=== PATIENT | female | born 1940 | race Caucasian/White ===

== ENCOUNTER 2021-06-18 23:18 | Inpatient (IN) | payer MEDICARE, OTHER ==
[~2021-06-18] VITALS: Ht 162.6 cm; Wt 62.1 kg
[2021-06-19 04:31] LABS: HEMOGLOBIN 11.8 gm/dl (12.3-15.3); RED BLOOD COUNT 3.86 M/UL (4.00-5.10); WHITE BLOOD COUNT 27.2 K/UL (4.5-11.0)
[2021-06-19] MEDS ORDERED: DOXYCYCLINE MO100 MG PO (10:30)
[2021-06-19] MEDS ORDERED: PREDNISONE10 M1 PO (10:30)
[2021-06-19] MEDS ORDERED: CARVEDILOL12.5 MG PO (10:31)
[2021-06-19] MEDS ORDERED: ELIQUIS5 MG PO (10:31)
[2021-06-19] MEDS ORDERED: HYDROCODON-ACE1 EAC4 PO (10:31)
[2021-06-19] MEDS ORDERED: CARDIZEM30 MG PO (10:32)
[2021-06-19] MEDS ORDERED: ADVAIR 250-501 EACH INH (10:32)
[2021-06-19] MEDS ORDERED: LOSARTAN POTAS100 MG PO (10:33)
[2021-06-19] MEDS ORDERED: PROAIR HFA8.5 GM INH (10:33)
[2021-06-19] MEDS ORDERED: CRESTOR20 MG PO (10:33)
[2021-06-19] MEDS ORDERED: SOTALOL120 MG PO (10:34)
[2021-06-19] MEDS ORDERED: ASPIRIN81 MG PO (10:34)
[2021-06-19] MEDS ORDERED: ONDANSETRON HCL4 MG PO (10:35)
[2021-06-19] MEDS ORDERED: VITAMIN D3-CAL1 EACH PO (10:36)
[2021-06-20 03:59] LABS: HEMOGLOBIN 10.4 gm/dl (12.3-15.3)
[2021-06-20 04:02] LABS: RED BLOOD COUNT 3.43 M/UL (4.00-5.10); WHITE BLOOD COUNT 14.8 K/UL (4.5-11.0)
[2021-06-20 04:15] LABS: BUN/CREATININE RATIO 34 (0-10)
--- NOTE | 2021-06-20 04:23 | NUR ---
PTS PTT RESULT OF GREATER THAN [address] RUEDA. ORDERS TO CONTINUE TO FOLLOW HEPARIN PROTOCOL.
--- NOTE | 2021-06-21 05:09 | NUR ---
WOUND CARE PERFORMED ON RIGHT HIP. PT NOTED TO HAVE NUMEROUS SKIN TEARS FROM THE DRESSINGS. CLEANSED WOUND WITH BETADINE AND APPLIED STERI STRIPS AND COVERED WITH ABD PAD AND PAPER TAPE. PT TOLERATED VERY WELL. ATTEMPTED TO SECURE DRESSING TO AREAS WHERE SHE WOULD NOT SUSTAIN MORE SKIN TEARS.
[2021-06-21 05:21] LABS: WHITE BLOOD COUNT 18.4 K/UL (4.5-11.0)
[2021-06-21 05:32] LABS: RED BLOOD COUNT 3.05 M/UL (4.00-5.10)
[2021-06-21 06:53] LABS: BUN/CREATININE RATIO 41 (0-10)
[2021-06-22 05:03] LABS: HEMOGLOBIN 9.2 gm/dl (12.3-15.3); RED BLOOD COUNT 3.13 M/UL (4.00-5.10); WHITE BLOOD COUNT 18.3 K/UL (4.5-11.0)
[2021-06-22 05:13] LABS: BUN/CREATININE RATIO 36 (0-10)
[2021-06-23 05:13] LABS: RED BLOOD COUNT 3.31 M/UL (4.00-5.10); WHITE BLOOD COUNT 19.2 K/UL (4.5-11.0)
[2021-06-23 06:40] LABS: BUN/CREATININE RATIO 24 (0-10)
--- NOTE | 2021-06-23 12:26 | NUR ---
PATIENT O2 SAT 87% ON ROOM AIR AT REST.
--- NOTE | 2021-06-24 02:52 | NUR ---
DRESSING CHANGED TO RIGHT OUTER HIP SURGICAL SITE. STERI STRIPS STILL IN PLACE, CHLORAHEXADINE SOAP USED TO CLEAN SITE, RINSED AND ISLAND DRESSING APPLIED. PATIENT TOLERATED PROCEDURE WELL.
[2021-06-24 16:36] LABS: HEMOGLOBIN 10.3 gm/dl (12.3-15.3); RED BLOOD COUNT 3.37 M/UL (4.00-5.10); WHITE BLOOD COUNT 15.7 K/UL (4.5-11.0)
[2021-06-24 16:55] LABS: BUN/CREATININE RATIO 20 (0-10)
[2021-06-25 08:34] LABS: HEMOGLOBIN 9.4 gm/dl (12.3-15.3); RED BLOOD COUNT 3.09 M/UL (4.00-5.10); WHITE BLOOD COUNT 14.2 K/UL (4.5-11.0)
[2021-06-25 09:02] LABS: BUN/CREATININE RATIO 23 (0-10)
--- NOTE | 2021-06-25 10:35 | NUR ---
DR MORENO HERE TO DO CARDIOVERSION, TIME OUT PERFORMED AT 10:36, VS STABLE AT THIS TIME. VERSED 2MG IV GIVEN AT 10:37, 10:39 PT DROWSY, PT WAS SHOCKED X1 WITH 200J, CONVERTED BACK TO SR/SB, CONFIRMED WITH EKG, BP LOW, 250ML NS BOLUS GIVEN, BP COMING BACK UP SLOWLY, PT AWAKENS EASILY, WILL CONTINUE TO MONITOR.
[2021-06-26 03:02] LABS: HEMOGLOBIN 8.8 gm/dl (12.3-15.3); RED BLOOD COUNT 2.9 M/UL (4.00-5.10)
[2021-06-26 03:21] LABS: WHITE BLOOD COUNT 10.4 K/UL (4.5-11.0)
[2021-06-26 03:33] LABS: BUN/CREATININE RATIO 24 (0-10)
[2021-06-27 05:47] LABS: HEMOGLOBIN 8.5 gm/dl (12.3-15.3); RED BLOOD COUNT 2.76 M/UL (4.00-5.10)
[2021-06-27 06:10] LABS: BUN/CREATININE RATIO 29 (0-10)
--- NOTE | 2021-06-27 13:19 | NUR ---
PATIENT HEART RATE INCREASED TO 120. AWARE
[2021-06-28 04:35] LABS: HEMOGLOBIN 8.9 gm/dl (12.3-15.3); RED BLOOD COUNT 2.92 M/UL (4.00-5.10); WHITE BLOOD COUNT 7.9 K/UL (4.5-11.0)
[2021-06-28 04:58] LABS: BUN/CREATININE RATIO 25 (0-10)
[2021-06-29 03:54] LABS: HEMOGLOBIN 8.5 gm/dl (12.3-15.3); RED BLOOD COUNT 2.74 M/UL (4.00-5.10); WHITE BLOOD COUNT 6.8 K/UL (4.5-11.0)
[2021-06-29 04:56] LABS: BUN/CREATININE RATIO 23 (0-10)
[2021-06-29] MEDS ORDERED: AUGMENTIN 875-1 EACH PO (09:57)
[2021-06-29] MEDS ORDERED: BETAPACE 80MG T80 MG PO (09:57)
[2021-07-10] MEDS ORDERED: SOTALOL120 MG PO (16:24)
== END 2021-06-29 14:28 | disposition home health service (06) | DRG 871 ==
LOC: PROG CARE 06-19 00:20
PROVIDERS: Internal Medicine; ADMIT Internal Medicine
PROC: 3E033XZ Introduction of Vasopressor into Peripheral Vein, Percutaneous Approach (ICD-10-PCS; principal; 2021-06-19)
PROC: B24BZZZ Ultrasonography of Heart with Aorta (ICD-10-PCS; 2021-06-19)
PROC: 5A0935A Assistance with Respiratory Ventilation, Less than 24 Consecutive Hours, High Flow/Velocity Cannula (ICD-10-PCS; 2021-06-19)
PROC: 5A2204Z Restoration of Cardiac Rhythm, Single (ICD-10-PCS; 2021-06-25)
DX: A41.9 Sepsis, unspecified organism (principal); J18.9 Pneumonia, unspecified organism; U07.1 COVID-19; J96.01 Acute respiratory failure with hypoxia; I21.A1 Myocardial infarction type 2; R57.1 Hypovolemic shock; R65.21 Severe sepsis with septic shock; D62 Acute posthemorrhagic anemia; L76.34 Postprocedural seroma of skin and subcutaneous tissue following other procedure; E88.09 Other disorders of plasma-protein metabolism, not elsewhere classified; Z96.1 Presence of intraocular lens; E55.9 Vitamin D deficiency, unspecified; I95.2 Hypotension due to drugs; T50.995A Adverse effect of other drugs, medicaments and biological substances, initial encounter; I48.0 Paroxysmal atrial fibrillation; E78.5 Hyperlipidemia, unspecified; Y83.8 Other surgical procedures as the cause of abnormal reaction of the patient, or of later complication, without mention of misadventure at the time of the procedure; J43.9 Emphysema, unspecified; F41.9 Anxiety disorder, unspecified; R53.81 Other malaise; Z79.01 Long term (current) use of anticoagulants; Z86.16 Personal history of COVID-19; Z79.82 Long term (current) use of aspirin; Z90.49 Acquired absence of other specified parts of digestive tract; Z90.710 Acquired absence of both cervix and uterus; Z80.3 Family history of malignant neoplasm of breast; Z82.49 Family history of ischemic heart disease and other diseases of the circulatory system; Z87.891 Personal history of nicotine dependence; Z98.42 Cataract extraction status, left eye; Z98.41 Cataract extraction status, right eye
CPT/HCPCS: ECHO; 36415; 36600; 71045; 71046; 73502; 80048; 80053; 80202; 81001; 82550; 82553; 82803; 82962; 83605; 83880; 84439; 84443; 84484; 85018; 85025; 85027; 85652; 85730; 86140; 87040; 87070; 87205; 93005; 93306; 94640; 94760; 97110; 97110-GP-CQ; 97116-GP-CQ; 97162; 97166; 97530; 97530-GP-CQ; 97535; C9113; J0461; J1160; J1265; J1644; J1940; J2185; J2250; J2405; J2543; J2930; J3010; J3370; J7050; Q9967; U0002